=== PATIENT | female | born 1990 | race Caucasian/White ===

== ENCOUNTER 2024-01-14 21:09 | Observation (INO) | payer BC, SELFPAY ==
[2024-01-14] VITALS (19 sets, daily range): BP systolic 112–149; BP diastolic 64–115; BMI 23.5; BMI 25.5
[2024-01-14 10:31] LABS: % Basophils 0.5 % (0-2); % Eosinophils 0.9 % (0-6); % Immature Granulocytes 0.4 % (0-0.5); % Lymphocytes 13.4 % (20.5-51.1); % Monocytes 3.7 % (1.7-9.3); % Neutrophils 81.1 % (42.2-75.2); Absolute Basophils 0.1 10^3/uL (0-0.2); Absolute Eosinophils 0.1 10^3/uL (0-0.7); Absolute Immature Granulocytes 0.1 10^3/uL (0-0.05); Absolute Lymphocytes 1.5 10^3/uL (1.2-3.4); Absolute Monocytes 0.4 10^3/uL (0.1-0.6); Absolute Neutrophils 9.3 10^3/uL (1.4-6.5); Hematocrit 37.1 % (37.0-47.0); Hemoglobin 12.7 g/dL (12.0-16.0); Mean Corp Hgb Conc. 34.2 g/dL (33.0-37.0); Mean Corpuscular Hgb 28.6 pg (27.0-31.0); Mean Corpuscular Volume 83.6 fL (81.0-99.0); Mean Platelet Volume 11.7 fL (7.4-10.4); Nucleated Red Blood Cells % 0 %; Platelet Count 295 10^3/uL (130-400); Red Blood Cell Count 4.44 10^6/uL (4.20-5.40); Red Cell Dist. Width 11.9 % (11.5-14.5); White Blood Cell Count 11.5 10^3/uL (4.8-10.8)
[2024-01-14 10:54] LABS: Blood Urea Nitrogen 12 mg/dl (7-17); Calcium 9.3 mg/dl (8.4-10.2); Carbon Dioxide 22 mmol/L (22-30); Chloride 107 mmol/L (98-107); Estimated Creatinine Clearance > 125 ml/min; Glucose 104 mg/dl (70-99); Sodium 138 mmol/L (135-145); eGFR > 60.00
--- NOTE | 2024-01-14 11:07 | EDRN ---
the pt pressed the call douglas and this RN entered the pts room, the pt stated that she needed to urinate, this RN asked the pt if she felt like she could walk to the bathroom, the pt stated that when she moves she has severe pain, this RN asked the
pt if she wanted to use a pure wick, the pt was agreeable to the pure wick, this RN placed the pure wick, will continue to monitor the pt closely
--- NOTE | 2024-01-14 11:21 | EDRN ---
the pt pressed the call douglas and this RN entered the pts room, the pt was able to urinate, urine collected and sent to lab, jesus manuel rivera removed per the pts request, will continue to monitor the pt closely
--- NOTE | 2024-01-14 11:23 | ED.GENMED ---
History of Present Illness
<Genny Rico MD - Last Filed: 01/14/24 14:05>
General
Chief Complaint: Fainting/Passed Out
Source: patient
Exam Limitations: none
Time Seen by Provider: 01/14/24 10:35
Nursing documentation reviewed up to this point in time: agreed with
History of Present Illness
History of Present Illness:
Patient is a pleasant 33-year-old female who reports that she bent down to tie her shoe just prior to arrival and experienced sudden onset of severe right lower back pain radiating into her right buttock area and up the right side of her mid back.
Patient reports that the pain was so intense she felt lightheaded and passed out. Patient denies headache and vision changes. She denies nausea and vomiting. Patient reports she still has pain in her right lower back, primarily in her right
buttock area. She describes the pain is severe at this time. She reports she was given fentanyl by paramedics which only brought her pain down slightly. She denies radiation of pain into the legs. She denies weakness and numbness of the legs.
She denies chest pain or shortness of breath.
Past History
<Genny Rico MD - Last Filed: 01/14/24 14:05>
Past History
ED Past Medical History: None
ED Past Surgical History: None
Social History
Tobacco: Non-smoker
Alcohol: Other
Drug: None
Personal: Other
Living: with family
Employment: Other
Family History
Family History: Other
Review of Systems
<Genny Rico MD - Last Filed: 01/14/24 14:05>
Review of Systems
Allergies reviewed?: Yes
Constitutional: Reports no symptoms
EENT: Reports no symptoms
Respiratory: Reports no symptoms
Cardiac: Reports syncope
ABD/GI: Reports no symptoms
: Reports no symptoms
Musculoskeletal: Reports muscle stiffness and back pain
Skin: Reports no symptoms
Neurological: Reports no symptoms
Endocrine: Reports no symptoms
Hematologic/Lymphatic: Reports no symptoms
Psychiatric: Reports no symptoms
Phy Exam
<Genny Rico MD - Last Filed: 01/14/24 14:05>
Physical Exam
Physical Exam:
Physical Exam
General: Nontoxic but patient looks uncomfortable
Neck: supple. no meningeal signs. normal posterior pharynx
Heart: s1/s2 regular rate and rhythm, no murmur. equal radial pulses.
Lungs: no acute respiratory distress. clear bilaterally
Abdomen: normal bowel sounds. Mild right lower flank/right sacral tenderness. Soft abdomen throughout. No pulsatile mass.
Neuro: alert and oriented. no focal neurological deficits. 5 out of 5 strength in all extremities. No saddle anesthesia.
Skin: no rash
Psychiatric: well kept. interactive and cooperative
Extremities: no edema. no calf tenderness. negative homans. good distal pulses
Course
<Genny Rico MD - Last Filed: 01/14/24 14:05>
Orders/Labs/Results
Orders:
Orders
01/14/24 10:03
EKG [Electrocardiogram (*1)] Urgent
Reason for Study: Vertigo / Dizzy
01/14/24 10:04
EKG- Treatment ONCE
01/14/24 10:09
Basic Metabolic Panel Urgent
Complete Blood Count/With Diff Urgent
Direct Bilirubin Urgent
Comment: ADD ON
HCG, Urine Qualitative Screen Urgent
Date Specimen was Collected: 01/14/24
Time Specimen was Collected: 10:04
Comment: [place] [id number]
Urinalysis Reflex To Culture Urgent
Date Specimen was Collected: 01/14/24
Time Specimen was Collected: 10:04
01/14/24 11:32
HYDROmorphone [Dilaudid] 0.5 mg IV NOW STA
diazePAM [Valium Injection] 5 mg IV NOW STA
01/14/24 11:36
Troponin I Urgent
01/14/24 12:41
Add On- LAB Urgent
Tests Added?: serum beta HCG qualitative
01/14/24 12:42
CT Chest/abd/pelvis Angio W/wo Urgent
Comment:
Reason For Exam: severe flank pain
01/14/24 14:16
Add On- LAB Urgent
Tests Added?: LFT
01/14/24 17:02
HYDROmorphone [Dilaudid] 1 mg IV NOW STA
Lidocaine [Lidocaine 4% Patch] 1 patch TOPICAL NOW STA
Apply Lidocaine patch(s) to:: back
diazePAM [Valium Injection] 5 mg IV NOW STA
Abnormal Lab Results
01/14/24
10:09
WBC 11.5 H 10^3/uL
(4.8-10.8)
MPV 11.7 H fL
(7.4-10.4)
Abs Immat Gran (auto) 0.1 H 10^3/uL
(0-0.05)
Absolute Neuts (auto) 9.3 H 10^3/uL
(1.4-6.5)
Neutrophils % 81.1 H %
(42.2-75.2)
Lymphocytes % 13.4 L %
(20.5-51.1)
Glucose 104 H mg/dl
(70-99)
01/14/24 10:09
01/14/24 10:09
Vital Signs
Initial and Last Documented VS:
Initial Vital Signs
Temp Pulse Resp BP Pulse Ox
98.5 F 56 16 139/115 97
01/14/24 10:24 01/14/24 10:24 01/14/24 10:24 01/14/24 10:24 01/14/24 10:24
Last Documented Vital Signs
Temp Pulse Resp BP Pulse Ox
98.5 F 74 13 136/77 97
01/14/24 10:24 01/14/24 18:00 01/14/24 18:00 01/14/24 18:00 01/14/24 18:00
<Meenu Brandon MD - Last Filed: 01/14/24 20:49>
Orders/Labs/Results
Orders:
Orders
01/14/24 10:03
EKG [Electrocardiogram (*1)] Urgent
Reason for Study: Vertigo / Dizzy
01/14/24 10:04
EKG- Treatment ONCE
01/14/24 10:09
Basic Metabolic Panel Urgent
Complete Blood Count/With Diff Urgent
Direct Bilirubin Urgent
Comment: ADD ON
HCG, Urine Qualitative Screen Urgent
Date Specimen was Collected: 01/14/24
Time Specimen was Collected: 10:04
Comment: [place] [id number]
Urinalysis Reflex To Culture Urgent
Date Specimen was Collected: 01/14/24
Time Specimen was Collected: 10:04
01/14/24 11:32
HYDROmorphone [Dilaudid] 0.5 mg IV NOW STA
diazePAM [Valium Injection] 5 mg IV NOW STA
01/14/24 11:36
Troponin I Urgent
01/14/24 12:41
Add On- LAB Urgent
Tests Added?: serum beta HCG qualitative
01/14/24 12:42
CT Chest/abd/pelvis Angio W/wo Urgent
Comment:
Reason For Exam: severe flank pain
01/14/24 14:16
Add On- LAB Urgent
Tests Added?: LFT
01/14/24 17:02
HYDROmorphone [Dilaudid] 1 mg IV NOW STA
Lidocaine [Lidocaine 4% Patch] 1 patch TOPICAL NOW STA
Apply Lidocaine patch(s) to:: back
diazePAM [Valium Injection] 5 mg IV NOW STA
Abnormal Lab Results
01/14/24
10:09
WBC 11.5 H 10^3/uL
(4.8-10.8)
MPV 11.7 H fL
(7.4-10.4)
Abs Immat Gran (auto) 0.1 H 10^3/uL
(0-0.05)
Absolute Neuts (auto) 9.3 H 10^3/uL
(1.4-6.5)
Neutrophils % 81.1 H %
(42.2-75.2)
Lymphocytes % 13.4 L %
(20.5-51.1)
Glucose 104 H mg/dl
(70-99)
01/14/24 10:09
01/14/24 10:09
Vital Signs
Initial and Last Documented VS:
Initial Vital Signs
Temp Pulse Resp BP Pulse Ox
98.5 F 56 16 139/115 97
01/14/24 10:24 01/14/24 10:24 01/14/24 10:24 01/14/24 10:24 01/14/24 10:24
Last Documented Vital Signs
Temp Pulse Resp BP Pulse Ox
98.5 F 74 13 136/77 97
01/14/24 10:24 01/14/24 18:00 01/14/24 18:00 01/14/24 18:00 01/14/24 18:00
<Genny Rico MD - Last Filed: 01/14/24 14:05>
MDM/Problems Addressed
Differential Diagnosis Includes:
Musculoskeletal back pain, aortic dissection, renal colic
MDM/Problems Addressed:
Patient presents with acute right lower back pain
<Genny Rico MD - Last Filed: 01/14/24 14:05>
*Pulse Oximetry
Patient hypoxic: no
*EKG
Interpreted by ED Provider?: Yes
Interpretation: abnormal
Comparison EKG: no comparison EKG present
Rate: normal
Rhythm: sinus arrhythmia
[place]: normal axis
Interval: normal interval
QRS Pattern: normal QRS
Ischemia: non-specific ST changes
*Neonatal Critical Care Nurse Interpretation
Rate: normal
Interpretation: normal
Rhythm: sinus
<Meenu Brandon MD - Last Filed: 01/14/24 20:49>
*Critical Care Note
Total Time (30-74mins, 75-104mins- exclusive of procedures): Not Applicable
<Meenu Brandon MD - Last Filed: 01/14/24 20:49>
Update Note
Update Note:
CT report No evidence of thoracic/abdominal aortic dissection or aneurysm.
Mild hepatomegaly.
No findings to suggest obstructive uropathy bilaterally.
Single small sclerotic densities within the head of the proximal left femur and supra-acetabular, nonspecific but most likely representing incidental benign bone islands.
S/o Dr Rico...reassuringly, CT generally unremkarakble. No new sxs, pain continues, espec with mvoement. Will medicate and monitor closely.
Despite meds here, pt continues to have pain, particularly with sitting up/attempting to stand walk. No neuro sxs such as weakness,n,t. ?severe msk vs radiculopathy Doubt vascular event given studies here, no neuro sxs, etc. D/w hospitalist for
admission and pain control.
849 PM pt and family questions answered, pt declines further meds at this time, no new sxs. Has been seen by hospitalist.
ED Attending Note
<Genny Rico MD - Last Filed: 01/14/24 14:05>
-
Portions of this chart may have been created with voice recognition software.� Occasional wrong word or��sound alike� substitutions may have occurred due to the inherent limitations of voice recognition software.
Discharge Plan
Departure
Patient Disposition: Admit
Date of Disposition: 01/14/24
Time of Disposition: 19:46
Presentation/result/management discussed w/ accepting MD/DO: Hospitalist
Condition: Fair
Discharge Problem:
Back pain
Prescriptions:
No Action
ascorbic acid (vitamin C) [Vitamin C] 500 mg Tablet
500 mg PO DAILY
norgestimate-ethinyl estradiol 0.18/0.215/0.25 mg-35 mcg (28) tablet
1 tab PO DAILY
Visbiome 112.5 billion cell Capsule
1 cap PO DAILY
Referrals:
Yolanda León PA-C [Family Provider] -
Interventions
Interventions:
*Risk Screen - Suicide Last Done: 01/14/24 10:24
*General Assessment Last Done: 01/14/24 10:24
*Neglect/Abuse Screening Last Done: 01/14/24 10:24
ED- Fall Risk Assessment Last Done: 01/14/24 10:24
*ED COVID-19 Vaccine History Last Done: 01/14/24 10:24
ED- Cardiac Assessment Last Done: 01/14/24 10:24
ED- Neurological Assessment Last Done: 01/14/24 10:24
Discharge Date and Time
Print Language: LAO
[2024-01-14 11:25] LABS: Urine Albumin Negative (Neg - Trace); Urine Bilirubin Negative (Negative); Urine Character Clear (Clear); Urine Color Yellow; Urine Glucose Negative (Negative); Urine Ketone Negative (Negative); Urine Leukocyte Negative (Negative); Urine Nitrite Negative (Negative); Urine Occult Blood Negative (Negative); Urine Specific Gravity 1.015 (<1.030); Urine Urobilinogen Negative (Neg - 1+)
--- NOTE | 2024-01-14 11:41 | EDRN ---
Troponin drawn and sent, Right Hand PIV removed per the pts request, RAC #20 PIV placed
[2024-01-14] MEDS: VALIUM INJECTION 5 MG IV ×2 (11:46→17:48)
[2024-01-14] MEDS: DILAUDID 0.5 MG IV (11:47)
[2024-01-14 12:13] LABS: Troponin I < 0.012 ng/ml
--- NOTE | 2024-01-14 12:29 | EDRN ---
pain medication administered and EKG performed, per the provider Deyanira Mathew NP the pt is to be placed on campus monitor for elevated K, this RN notified the charge nurse, this RN will find portable monitor
--- NOTE | 2024-01-14 13:30 | EDRN ---
awaiting for the pt to go to CT scan
--- NOTE | 2024-01-14 14:16 | EDRN ---
Dr. Lacey currently at the pts bedside, the pt is resting in stretcher in the lowest position, side rails up x2, call douglas within reach, HOB elevated, no s/s of distress, the pt denies needing anything at this time, will continue to monitor the
pt closely
--- NOTE | 2024-01-14 14:28 | EDRN ---
the pt pressed the call douglas and this RN entered the pts room, the pt stated that she needed to urinate, this RN asked the pt if she wanted to try to get out of bed and the pt was agreeable, this RN attempted to assist the pt OOB and due to severe
pain in the right lower back that radiates to the lower leg, the pt was unable to get out of bed, this RN placed a pure wick with the pts permission, awaiting to take the pt to CT scan, will continue to monitor the pt closely
--- NOTE | 2024-01-14 14:29 | EDRN ---
provider notified by this RN that the pt bradys down to the 40's
--- NOTE | 2024-01-14 14:30 | EDRN ---
still currently waiting for the pt to go to CT scan
[2024-01-14 14:51] LABS: HCG, Urine Qualitative Screen Negative
[2024-01-14 16:26] LABS: Direct Bilirubin 0.4 mg/dl (0.0-0.4)
[2024-01-14] MEDS: LIDOCAINE 4% PATCH 1 PATCH TOPICAL (17:46)
[2024-01-14] MEDS: DILAUDID 1 MG IV (17:47)
--- NOTE | 2024-01-14 20:25 | HPS.HSE ---
Addendum entered and electronically signed by Destin Lipscomb MD 01/16/24 11:01:
I saw and evaluated the patient. I reviewed the resident�s note and agree with findings and plan as documented in the resident�s note.
Back pain improving.
Patient seen and examined with nurse Noy Gleason present at bedside:
Gen: NAD, AAOx3.
Eyes: EOMI, PERRLA, no scleral icterus.
Neck: supple.
CV: remains RRR, +S1/S2, no m/r/g.
Resp: remains CTAB, no rales, wheezes, or rhonchi.
Abd: +BS, soft, NT, ND
Skin: No rashes.
Neuro: CN 2-12 intact, non-focal (5/5 strength RLE, 4/5 strength LLE due to pain).
Psych: Normal mood and affect.
MRI L-spine: There is degenerative disc disease and facet arthropathy at L4-L5 and L5-S1. At L4-L5 is disc bulge with superimposed central disc protrusion and mild bilateral facet arthropathy with resultant bilateral lateral recess narrowing and
mild bilateral neural foraminal narrowing. No significant central canal stenosis. At L5-S1 there is central disc protrusion and bilateral facet arthropathy without significant spinal canal or neuroforaminal narrowing.
Low back pain:
-Toradol is helping with pain
-flexeril PRN
-cont Medrol dose radha
-for PAM 01/17/24PM. Note c/s to Dr. Tong placed 01/15/24 but he stated that since he does not do PAM that procedure would have to be delayed until 01/17/24.
-PT/OT
Pt's mother updated at length at bedside. RN updated.
Original Note:
Family Physician
-
Family Physician: Yolanda León, PAC
Chief Complaint
-
Back pain
History of Present Illness
Patient is a 32-year-old female who presented to ED for evaluation following quick onset of back pain with near syncopal episode. Patient reported that she was sitting on treadmill and bent over to tie her shoes early this morning when she had
sudden onset of sharp stabbing pain to lower back that radiated upwards to midback just below her shoulder blades. She stated she had near syncopal episode from severe onset of pain. Patient denies any dyspnea, chest pain, nausea, vomiting, numbness
or tingling in extremities. She has postivie ROM to bilateral upper extremities and limited ROM to bilateral lower extremities related to back pain. Patient received Dilaudid, and Valium in ED and she states it has taken edge off but pain remains at
a 10/09. ED staff attempted to see if patient could stand and she was unable to weight bear to bilateral lower extremities.
Medical History
Past Medical History
Past Medical History: Reports None
Past Surgical History: Reports Other (deviated septum repair)
Social History
Tobacco: Non-smoker
Alcohol: Occasional (1-2 drinks per week)
Drug: Marijuana (former marijuana smoker)
Personal: Single
Living: With Family
Employment: Employed
Family History
Family History: Not pertinent
Allergies / Home Medications
Allergies reflects when Allergies were last updated in [employer].
Home Medications with original date entered in [employer]
Allergy/Medication List:
Allergies
Allergy/AdvReac Type Severity Reaction Status Date / Time
No Known Allergies Allergy Verified 07/30/17 16:51
Home Medications Table - record
�Medication �Instructions �Recorded �Confirmed
Lactobac no.2-Bifidobac no.1-S. 1 cap PO DAILY 01/14/24 01/14/24
thermo 112.5 billion cell capsule
(Visbiome)
ascorbic acid (vitamin C) 500 mg 500 mg PO DAILY 01/14/24 01/14/24
tablet (Vitamin C)
norgestimate-ethinyl estradiol 1 tab PO DAILY 01/14/24 01/14/24
0.18 mg/0.215mg/0.25mg-35
mcg(28)tablet
Review of Systems
-
History Source: Patient
Constitutional: Reports No Symptoms and See HPI
EENT: Reports No Symptoms and See HPI
Respiratory: Reports No Symptoms and See HPI
Cardiac: Reports No Symptoms and See HPI
Abdomen/GI: Reports No Symptoms and See HPI
: Reports No Symptoms and See HPI
Musculoskeletal: Reports See HPI and Other (severe lower back pain radiates to midback)
Skin: Reports No Symptoms and See HPI
Neurological: Reports See HPI and Weakness
Endocrine: Reports No Symptoms and See HPI
Hematologic/Lymphatic: Reports No Symptoms and See HPI
Psych: Reports No Symptoms and See HPI
Physical Exam
Vital Signs
Vital Signs
Temp Pulse Resp BP Pulse Ox
98.5 F 74 13 136/77 97
01/14/24 10:24 01/14/24 18:00 01/14/24 18:00 01/14/24 18:00 01/14/24 18:00
Physical Exam
General: Well Developed, Well Nourished, No Apparent Distress, Conversant and Pain (lower back that radiates to midback)
HEENT: NormoCephalic, Moist mucous membranes, PERRLA, [place] Conjunctivae, Nose Appears Normal and Ears Appear Normal
Respiratory: Clear and Non Labored Respirations; No Accessory Resp Muscle Use
Cardiac: S1/S2 and Regular Rhythm; No Peripheral Edema
Breast: Deferred by me
GI: Soft, Non Tender, Non Distended and Normal Bowel Sounds
Rectal: Deferred by Provider
Genito-urinary: Deferred by me
Musculoskeletal: No Clubbing, No Cyanosis, No Edema, Normal Gait & Station and Other (unable to weight bare to bilateral lower extremities, ROM decreased in Bilateral lower extremities r/t severe back pain)
Skin: Warm, Dry and IV/Catheter Site
Neuro: Awake, AO x 3, Nonfocal/grossly intact and Cranial Nerves Intact
Hematologic/Lymphatic: No Lymphadenopathy
Psych: Calm and Intact Judgment/Insight
Laboratory Results
-
01/14/24 10:09
01/14/24 10:09
Laboratory Results
Total Bilirubin Cancelled 01/14/24 14:12
AST Cancelled 01/14/24 14:12
ALT Cancelled 01/14/24 14:12
Alkaline Phosphatase Cancelled 01/14/24 14:12
Troponin I < 0.012 ng/ml 01/14/24 11:36
Data Reviewed
-
CT Scan: Report Reviewed by me (No evidence of thoracic/abd aortic dissection or aneurysm. Mild hepatomegaly. No findings to suggest obstructive uropathy b/l, Single small sclerotic densities within the head of the proximal lt femur and
supra-acetabular, nonspecific but most likely representing incidental benign bone island)
Lab Data: Labs Reviewed by me
Impression/Plan
-
IMPRESSION/PLAN:
#Suspect disc prolapse complicated by acute Rt sided LBP with radiation
no red flag signs: pt denies numbness, tingling, sphincter dysfunction, no saddle anaethesis, no motor weakness
- Admit Observation to M/S
- Medrol dose pack
- Flexeril 5mg q8 PRN x 24hr
- PRN Dialudid 0.25mg q4 PRN
- Bowel protocol
- PT/OT
Full Code
DVT Px: LMWH
--- NOTE | 2024-01-14 20:32 | W.PN.UPDATE ---
Update Note
Progress Note Update
This note serves as an addendum to the H&P by body presser PAMELA
HPI:
33F No significant PMH seen at ER for
- Sudden onset of severe right lower back pain radiating into her right buttock area and up the right side of her mid back while she she bent down to tie her shoe
- pain in her right lower back, primarily in her right buttock area
- given fentanyl by paramedics which only brought her pain down slightly.
ROS:
denies radiation of pain into the legs.
She denies weakness and numbness of the legs.
She denies chest pain or shortness of breath.
Vital Signs
Temp Pulse Resp BP Pulse Ox
98.5 F 74 13 136/77 97
01/14/24 10:24 01/14/24 18:00 01/14/24 18:00 01/14/24 18:00 01/14/24 18:00
PE
General: looks uncomfortable
Neck: supple
CVS: s1/s2 regular rate and rhythm, no murmur. equal radial pulses.
Abdomen: normal bowel sounds. . Soft abdomen throughout. No pulsatile mass.
Neuro: alert and oriented. no focal neurological deficits.
5 out of 5 strength in all extremities.
No saddle anesthesia.
MS: Mild right lower flank/right sacral tenderness
Skin: no rash
Psychiatric: well kept. interactive and cooperative
Extremities: no edema. no calf tenderness. negative Homans. good distal pulses
Data
Laboratory Tests
01/14/24 01/14/24
10:09 11:36
WBC 11.5 H
Sodium 138
Carbon Dioxide 22
Creatinine 0.6
Troponin I < 0.012
EKG
SINUS RHYTHM WITH MARKED SINUS ARRHYTHMIA
CANNOT RULE OUT ANTERIOR INFARCT , AGE UNDETERMINED
ABNORMAL ECG
NO PREVIOUS ECGS AVAILABLE
ASSESSMENT & PLAN
suspect Disc prolapse complicated by acute Rt sided LBP with radiation to buttock
Rt sided lumbago
No red flag signs:denied sphincter dysfunction, no saddle anaethesis , no motor weaknes
- Medrol dose pack
- Flexeril 5mg q8h x 24hr
- PRN Dilaudid 0.25 mg q4 PRN
- BW Regime: PRN Senna, Colalce and Miralax
- PT/OT
DVT Px: LMWH
Code: Full
Ons MS
[2024-01-14] MEDS: MEDROL 24 MG PO (23:35)
[2024-01-14] MEDS: DILAUDID 0.25 MG IV (23:36)
--- NOTE | 2024-01-15 00:31 | PTCARENOTE ---
Patient arrived to unit via stretcher around 23:16 with dx of Suspected Disc Prolapse complicated by acute rt sided LBP with Radiation. Patient unable to bear weight on legs currently due to pain. PRN pain medication provided. AAOX3. Pleasant and
cooperative with care. oriented to unit. Call douglas in place.
[2024-01-15] MEDS: FLEXERIL 5 MG PO ×2 (02:59→18:05)
--- NOTE | 2024-01-15 07:32 | W.PN.HOSP.TC ---
Addendum entered and electronically signed by Destin Lipscomb MD 01/15/24 13:05:
I saw and evaluated the patient. I reviewed the resident�s note and agree with findings and plan as documented in the resident�s note.
Back pain persists. Denies bowel or bladder incontinence, saddle anesthesia, weakness of the lower extremities not due to pain, lower extremity paresthesias.
Patient seen and examined with nurse Noy Gleason present at bedside.
Gen: NAD, AAOx3.
Eyes: EOMI, PERRLA, no scleral icterus.
Neck: supple.
CV: RRR, +S1/S2, no m/r/g.
Resp: CTAB, no rales, wheezes, or rhonchi.
Abd: +BS, soft, NT, ND
Skin: No rashes.
Neuro: CN 2-12 intact, non-focal (4/5 strength in B/L LEs due to pain).
Psych: Normal mood and affect.
Low back pain:
-IV dilaudid not helping, will try Toradol
-flexeril PRN
-cont Medrol dose radha
-check MRI L-spine
-PT/OT
Pt's parents updated at length at bedside. RN updated.
Total time spent on today's encounter was 50 minutes which included time spent in counseling the patient/family regarding diagnosis and treatment plan as listed above, goals of care, and symptom management. Case was discussed with nursing staff,
specialists, and care coordinators/case management. All labs and imaging personally reviewed by me. Remainder the time spent in detailed review of previous records, lab data, imaging, and other medical provider documentation.
Original Note:
Today's Communication/Plan
-
-Lumbar MRI pending
-PT follow up
Assessment / Plan
Assessment / Plan
The patient is a 33-year-old female who reported having sudden onset of severe right lower back pain radiating into her right buttock area and up the right side of her mid back after she bent down to tie her shoe on 01.13. She reported she did not
fall or did not have a syncope but she had a severe pain at that time. She denied headache, nausea, feeling diazines, heart palpitations, chest pain, SOB at that time. She denies her pain radiating to her legs and reports it radiates to upper back
area. She denies weakness and numbness of the legs. She was admitted and was ordered a lumbar MRI for a possible disk herniation/musculoskeletal injury.
Assessment/ Plan:
#Possible disc prolapse
-Presenting acute Rt sided LBP with radiation
-No red flag signs: pt denies numbness, tingling, sphincter dysfunction, no saddle anaesthesia, no motor weakness, no urinary/fecal incontinence
-Lumbar MRI was ordered
- Admit Observation to M/S
-Continue Flexeril 5mg q8 PRN x 24hr
-PRN Dialudid 0.25mg q4 PRN
-Lidocaine patch can be considered for pain
- PT/OT
No other chronic medical problems
DVT Px: LMWH
Code status: Full Code
Anticipated Discharge: 24 - 48 hours
Subjective/Interval History
-
Date of Service: January 15, 2024
The patient was seen in her bed reporting she has difficulty to sit or stand up. She had purewick reporting having difficulty to go to bathroom. She reported her pain going to her upper back mostly. Denies urinary/fecal incontinence. Denies
worsening on her pain and weakness on her legs.
Objective Data
-
Labs:
Laboratory Results
01/15/24
06:31
WBC Pending
Hgb Pending
Hct Pending
Plt Count Pending
Vital Signs:
Vital Signs
Temp Pulse Resp BP Pulse Ox
98.0 F 51 18 131/84 99
01/14/24 23:21 01/14/24 23:21 01/14/24 23:21 01/14/24 23:21 01/14/24 23:21
I&O
01/14/24 01/15/24 01/16/24
06:59 06:59 06:59
Intake Total 240 / 240
Output Total 1000 / 1000
Balance -760 / -760
Review of Systems
-
History Source: Patient
EENT: Reports No Symptoms Reported
Respiratory: Reports No Symptoms
Cardiac: Reports No Symptoms
Abdomen/GI: Reports No Symptoms
Genitourinary: Reports No Symptoms and Other (Denies urinary/fecal incontinence.)
Musculoskeletal: Reports Other (See HPI )
Skin: Reports No Symptoms
Neuro: Reports No Symptoms and Other (See HPI )
Physical Exam
-
General: Well Developed and Well Nourished
HEENT: Normocephalic and Atraumatic
Respiratory: Clear to Auscultation
Cardiac: Regular Rhythm and S1/S2
GI: Soft and Nontender
Musculoskeletal: No Clubbing, No Cyanosis, No Edema and Other (Bilateral lower extremity muscle strength exam was limited due pain. It was roughly 4 bilteral)
Skin: Warm
Neuro: Awake, Alert, Oriented, AO x 3 and Other (See HPI )
[2024-01-15 07:45] VITALS: BP 131/67
[2024-01-15] MEDS: DILAUDID 0.25 MG IV (08:10)
[2024-01-15] MEDS: MEDROL 20 MG PO (08:10)
[2024-01-15 08:34] LABS: % Basophils 0.2 % (0-2); % Eosinophils 0.1 % (0-6); % Immature Granulocytes 0.4 % (0-0.5); % Monocytes 0.6 % (1.7-9.3); % Neutrophils 94.7 % (42.2-75.2); Absolute Immature Granulocytes 0.1 10^3/uL (0-0.05); Absolute Lymphocytes 0.5 10^3/uL (1.2-3.4); Absolute Monocytes 0.1 10^3/uL (0.1-0.6); Absolute Neutrophils 11.8 10^3/uL (1.4-6.5); Hematocrit 40.5 % (37.0-47.0); Hemoglobin 13.4 g/dL (12.0-16.0); Mean Corp Hgb Conc. 33.1 g/dL (33.0-37.0); Mean Corpuscular Hgb 28.2 pg (27.0-31.0); Mean Corpuscular Volume 85.3 fL (81.0-99.0); Mean Platelet Volume 12.4 fL (7.4-10.4); Nucleated Red Blood Cells % 0 %; Platelet Count 321 10^3/uL (130-400); Red Blood Cell Count 4.75 10^6/uL (4.20-5.40); Red Cell Dist. Width 11.9 % (11.5-14.5); White Blood Cell Count 12.5 10^3/uL (4.8-10.8)
[2024-01-15] MEDS: TORADOL 30 MG IV ×2 (14:07→20:31)
--- NOTE | 2024-01-15 14:32 | CM ---
CM reviewed chart, met with patient and mother and father bedside. Initial assessment completed. Patient resides with her six year old son in a multiple story home, no steps to enter, full flight of stairs to main floor. Patient denies use of any
DME, VN, or SNF history. Patient confirms PCP Yolanda León, pharmacy [facility], confirms prescription coverage. CM reviewed OBS form, refused to sign, placed in chart. CM will continue to follow for all discharge planning needs.
Plan; home, no needs likely.
[2024-01-15 15:58] VITALS: BP 122/69
[2024-01-15] MEDS: LOVENOX 40 MG SC (18:05)
[2024-01-15 23:50] VITALS: BP 121/69
[2024-01-16] MEDS: TORADOL 30 MG IV ×3 (04:36→17:49)
--- NOTE | 2024-01-16 05:54 | DOWNTIME ---
There was a [employer] Lead Downtime on 01/16/2024 from 0100 to 01/16/2024 at 0355. Downtime documentation of patient's care, including medication administrations, has been reconciled in the electronic record per guidelines. Refer to the
patient's paper chart under the miscellaneous tab to see printed paper medication records and downtime forms.
--- NOTE | 2024-01-16 07:29 | W.PN.HOSP.TC ---
Addendum entered and electronically signed by Destin Lipscomb MD 01/16/24 12:51:
I saw and evaluated the patient. I reviewed the resident�s note and agree with findings and plan as documented in the resident�s note.
Back pain improving
Patient seen and examined with nurse Noy Gleason present at bedside.
Gen: NAD, AAOx3.
Eyes: EOMI, PERRLA, no scleral icterus.
Neck: supple.
CV: remains RRR, +S1/S2, no m/r/g.
Resp: remains CTAB, no rales, wheezes, or rhonchi.
Abd: +BS, soft, NT, ND
Skin: No rashes.
Neuro: CN 2-12 intact, non-focal, 5/5 RLE, 4/5 LLE (limited by pain)
Psych: Normal mood and affect.
Low back pain:
-Toradol helping
-flexeril PRN
-cont Medrol dose radha
-for PAM tomorrow
-PT/OT
Pt's mother updated at bedside. RN updated.
Original Note:
Today's Communication/Plan
-
-IR Cons
Assessment / Plan
Assessment / Plan
Impression: The patient is a 33-year-old female who reported having sudden onset of severe right lower back pain radiating into her right buttock area and up the right side of her mid back after she bent down to tie her shoe on 01.13. She reported
she did not fall or did not have a syncope but she had a severe pain at that time. She denied headache, nausea, feeling diazines, heart palpitations, chest pain, SOB at that time. She denies her pain radiating to her legs and reports it radiates to
upper back area. She denies weakness and numbness of the legs. She was admitted and was ordered a lumbar MRI for a possible disk herniation/musculoskeletal injury. She was consulted with IR and scheduled for an epidural steroid injection on 01/16.
Assessment/ Plan:
#Lumbar disc protrusion
-Presenting acute Rt sided LBP with radiation
-No red flag signs: pt denies numbness, tingling, sphincter dysfunction, no saddle anaesthesia, no motor weakness, no urinary/fecal incontinence
-Lumbar MRI: There is degenerative disc disease and facet arthropathy at L4-L5 and L5-S1. At L4-L5 is disc bulge with superimposed central disc protrusion and mild bilateral facet arthropathy with resultant bilateral lateral recess narrowing and
mild bilateral neural foraminal narrowing. No significant central canal stenosis. At L5-S1 there is central disc protrusion and bilateral facet arthropathy without significant spinal canal or neuroforaminal narrowing.
-IR was consulted: the patient was scheduled for an epidural steroid injection on 01/16 aftrenoon
-Continue Flexeril 5mg q8 PRN x 24hr
-PRN Dialudid 0.25mg q4 PRN
-Lidocaine patch can be considered for pain
- PT/OT
No other chronic medical problems
DVT Px: LMWH
Code status: Full Code
Anticipated Discharge: 24 - 48 hours
Subjective/Interval History
-
Date of Service: January 16, 2024
Patient reported she
Objective Data
-
Labs:
Laboratory Results
01/16/24
06:00
WBC Pending
Hgb Pending
Hct Pending
Plt Count Pending
Sodium Pending
Potassium Pending
Chloride Pending
Carbon Dioxide Pending
BUN Pending
Creatinine Pending
Glucose Pending
Calcium Pending
Total Bilirubin Pending
AST Pending
ALT Pending
Alkaline Phosphatase Pending
Vital Signs:
Vital Signs
Temp Pulse Resp BP Pulse Ox
97.8 F 59 14 121/69 95
01/15/24 23:50 01/15/24 23:50 01/15/24 23:50 01/15/24 23:50 01/15/24 23:50
I&O
01/15/24 01/16/24 01/17/24
06:59 06:59 06:59
Intake Total 240 / 240 780 / 780
Output Total 1000 / 1000
Balance -760 / -760 780 / 780
Physical Exam
-
General: Well Developed, Well Nourished and No Apparent Distress
HEENT: Normocephalic and Atraumatic
Respiratory: Clear to Auscultation
Cardiac: Regular Rhythm and S1/S2
GI: Soft and Nontender
Musculoskeletal: No Clubbing, No Cyanosis, No Edema and Other (Lumbar Rom limited and painful. Bilateral lower extremity muscle strength exam was limited due pain and was grossly found 4)
Skin: Warm
Neuro: Awake, Alert, Oriented, AO x 3, Nonfocal/Grossly Intact and Other (No urinary/fecal incontinences )
Psych: Calm
[2024-01-16 07:40] VITALS: BP 132/75
--- NOTE | 2024-01-16 08:35 | W.PN.UPDATE ---
Update Note
Progress Note Update
IR was consulted for an PAM. Our room is down today and the physician on does not perform this procedure. We plan to perform the PAM tomorrow 01/17/24 in the afternoon
[2024-01-16] MEDS: FLEXERIL 5 MG PO ×2 (09:20→21:16)
[2024-01-16] MEDS: MEDROL 16 MG PO (09:20)
[2024-01-16 09:24] LABS: % Basophils 0.4 % (0-2); % Eosinophils 1.3 % (0-6); % Immature Granulocytes 0.5 % (0-0.5); % Lymphocytes 25.2 % (20.5-51.1); % Monocytes 5.7 % (1.7-9.3); % Neutrophils 66.9 % (42.2-75.2); Absolute Basophils 0.1 10^3/uL (0-0.2); Absolute Eosinophils 0.2 10^3/uL (0-0.7); Absolute Immature Granulocytes 0.1 10^3/uL (0-0.05); Absolute Monocytes 0.7 10^3/uL (0.1-0.6); Absolute Neutrophils 7.9 10^3/uL (1.4-6.5); Hematocrit 39.8 % (37.0-47.0); Hemoglobin 13.2 g/dL (12.0-16.0); Mean Corp Hgb Conc. 33.2 g/dL (33.0-37.0); Mean Corpuscular Hgb 28.1 pg (27.0-31.0); Mean Corpuscular Volume 84.9 fL (81.0-99.0); Mean Platelet Volume 12.3 fL (7.4-10.4); Nucleated Red Blood Cells % 0 %; Platelet Count 304 10^3/uL (130-400); Red Blood Cell Count 4.69 10^6/uL (4.20-5.40); Red Cell Dist. Width 12.2 % (11.5-14.5); White Blood Cell Count 11.7 10^3/uL (4.8-10.8)
[2024-01-16 10:20] LABS: ALT (SGPT) 16 U/L (0-35); AST (SGOT) 20 U/L (14-36); Alkaline Phosphatase 51 U/L (38-126); Blood Urea Nitrogen 17 mg/dl (7-17); Calcium 9.2 mg/dl (8.4-10.2); Carbon Dioxide 25 mmol/L (22-30); Chloride 105 mmol/L (98-107); Estimated Creatinine Clearance 88 ml/min; Glucose 90 mg/dl (70-99); Potassium 4.4 mmol/L (3.5-5.1); Sodium 143 mmol/L (135-145); Total Bilirubin 0.8 mg/dl (0.2-1.3); Total Protein 6.7 g/dl (6.3-8.2); eGFR > 60.00
[2024-01-16 11:17] VITALS: BP 120/76; PULSE 60; O2SAT 97
[2024-01-16 11:23] VITALS: BP 120/76; PULSE 60; O2SAT 97
--- NOTE | 2024-01-16 14:57 | CM ---
Home when stable. no needs.
Plan; Home no needs when stable.
[2024-01-16 15:18] VITALS: BP 141/75
[2024-01-16] MEDS: LOVENOX 40 MG SC (17:25)
[2024-01-16 23:30] VITALS: BP 127/71
[2024-01-17 06:53] LABS: % Basophils 0.6 % (0-2); % Eosinophils 1.3 % (0-6); % Immature Granulocytes 0.5 % (0-0.5); % Lymphocytes 27.6 % (20.5-51.1); % Monocytes 5.7 % (1.7-9.3); % Neutrophils 64.3 % (42.2-75.2); Absolute Basophils 0.1 10^3/uL (0-0.2); Absolute Eosinophils 0.2 10^3/uL (0-0.7); Absolute Immature Granulocytes 0.1 10^3/uL (0-0.05); Absolute Lymphocytes 3.5 10^3/uL (1.2-3.4); Absolute Monocytes 0.7 10^3/uL (0.1-0.6); Absolute Neutrophils 8.2 10^3/uL (1.4-6.5); Hematocrit 39.7 % (37.0-47.0); Hemoglobin 13.3 g/dL (12.0-16.0); Mean Corp Hgb Conc. 33.5 g/dL (33.0-37.0); Mean Corpuscular Hgb 29.4 pg (27.0-31.0); Mean Corpuscular Volume 87.8 fL (81.0-99.0); Mean Platelet Volume 11.9 fL (7.4-10.4); Nucleated Red Blood Cells % 0 %; Platelet Count 282 10^3/uL (130-400); Red Blood Cell Count 4.52 10^6/uL (4.20-5.40); Red Cell Dist. Width 11.9 % (11.5-14.5); White Blood Cell Count 12.7 10^3/uL (4.8-10.8)
[2024-01-17 07:16] LABS: ALT (SGPT) 15 U/L (0-35); AST (SGOT) 17 U/L (14-36); Albumin 3.7 g/dl (3.5-5.0); Alkaline Phosphatase 53 U/L (38-126); Blood Urea Nitrogen 16 mg/dl (7-17); Calcium 9.1 mg/dl (8.4-10.2); Carbon Dioxide 25 mmol/L (22-30); Chloride 105 mmol/L (98-107); Estimated Creatinine Clearance 88 ml/min; Glucose 87 mg/dl (70-99); Potassium 4.5 mmol/L (3.5-5.1); Sodium 140 mmol/L (135-145); Total Bilirubin 0.8 mg/dl (0.2-1.3); Total Protein 6.4 g/dl (6.3-8.2); eGFR > 60.00
--- NOTE | 2024-01-17 07:26 | W.PN.HOSP.TC ---
Addendum entered and electronically signed by Destin Lipscomb MD 01/17/24 16:39:
Total time spent on d/c = 31 min. This included today's physical exam, progress note, review of laboratory and diagnostic data, preparation of discharge documents and prescriptions, and discussions about the pt's hospital course and discharge plan
with the patient and other medical dosimetrist involved in the patient's care.
Addendum entered and electronically signed by Destin Lipscomb MD 01/17/24 11:43:
I saw and evaluated the patient. I reviewed the resident�s note and agree with findings and plan as documented in the resident�s note.
No new complaints.
Gen: NAD, AAOx3.
Eyes: EOMI, PERRLA, no scleral icterus.
Neck: supple.
CV: continues to remain RRR, +S1/S2, no m/r/g.
Resp: continues to remain CTAB, no rales, wheezes, or rhonchi.
Abd: +BS, soft, NT, ND
Skin: No rashes.
Neuro: CN 2-12 intact, non-focal, 4/5 RLE and 4/5 LLE (limited by pain)
Psych: Normal mood and affect.
Low back pain:
-Toradol helping
-flexeril PRN
-cont Medrol dose radha
-for PAM today
-PT/OT
Pt's mother updated at bedside.
d/c after PAM
Original Note:
Today's Communication/Plan
-
-IR epidural injection
Assessment / Plan
Assessment / Plan
Impression: The patient is a 33-year-old female who reported having sudden onset of severe right lower back pain radiating into her right buttock area and up the right side of her mid back after she bent down to tie her shoe on 01.13. She reported
she did not fall or did not have a syncope but she had a severe pain at that time. She denied headache, nausea, feeling diazines, heart palpitations, chest pain, SOB at that time. She denies her pain radiating to her legs and reports it radiates to
upper back area. She denies weakness and numbness of the legs. She was admitted and was ordered a lumbar MRI for a possible disk herniation/musculoskeletal injury. She was consulted with IR and scheduled for an epidural steroid injection on 01/16.
Assessment/ Plan:
#Lumbar disc protrusion
-Presenting acute Rt sided LBP with radiation
-No red flag signs: pt denies numbness, tingling, sphincter dysfunction, no saddle anaesthesia, no motor weakness, no urinary/fecal incontinence
-Lumbar MRI: There is degenerative disc disease and facet arthropathy at L4-L5 and L5-S1. At L4-L5 is disc bulge with superimposed central disc protrusion and mild bilateral facet arthropathy with resultant bilateral lateral recess narrowing and
mild bilateral neural foraminal narrowing. No significant central canal stenosis. At L5-S1 there is central disc protrusion and bilateral facet arthropathy without significant spinal canal or neuroforaminal narrowing.
-IR was consulted: the patient was scheduled for an epidural steroid injection on 01/16 aftrenoon
-Continue Flexeril 5mg q8 PRN x 24hr
-PRN Dialudid 0.25mg q4 PRN
-Continue Medrol dose radha
-Lidocaine patch can be considered for pain
- PT/OT
No other chronic medical problems
DVT Px: LMWH
Code status: Full Code
Anticipated Discharge: 24 - 48 hours
Subjective/Interval History
-
Date of Service: January 17, 2024
Patient was seen in her bed reporting her pain and ambulation improved comparing to her admission. Reports no other complaining.
Objective Data
-
Labs:
Laboratory Results
01/17/24
06:08
WBC 12.7 H
Hgb 13.3
Hct 39.7
Plt Count 282
Sodium 140
Potassium 4.5
Chloride 105
Carbon Dioxide 25
BUN 16
Creatinine 0.8
Glucose 87
Calcium 9.1
Total Bilirubin 0.8
AST 17
ALT 15
Alkaline Phosphatase 53
Vital Signs:
Vital Signs
Temp Pulse Resp BP Pulse Ox
98.0 F 50 14 127/71 97
01/16/24 23:30 01/16/24 23:30 01/16/24 23:30 01/16/24 23:30 01/16/24 23:30
I&O
01/16/24 01/17/24 01/18/24
06:59 06:59 06:59
Intake Total 780 / 780 300 / 300
Balance 780 / 780 300 / 300
Review of Systems
-
EENT: Reports No Symptoms Reported
Respiratory: Reports No Symptoms
Cardiac: Reports No Symptoms
Abdomen/GI: Reports No Symptoms
Genitourinary: Reports No Symptoms
Musculoskeletal: Reports Other (See HPI )
Neuro: Reports No Symptoms
Physical Exam
-
General: Well Developed, Well Nourished and No Apparent Distress
HEENT: Normocephalic and Atraumatic
Respiratory: Clear to Auscultation
Cardiac: Regular Rhythm and S1/S2
GI: Soft and Nontender
Musculoskeletal: Other (Lumbar Rom limited and painful. Bilateral lower extremity muscle strength exam was limited due pain and was grossly found 4))
Skin: Warm
Neuro: Awake, Alert, Oriented and AO x 3
[2024-01-17 07:52] VITALS: BP 133/86
[2024-01-17] MEDS: MEDROL 12 MG PO (08:24)
[2024-01-17] MEDS: TORADOL 30 MG IV ×2 (08:28→16:31)
--- NOTE | 2024-01-17 09:55 | CM ---
Chart reviewed and recommendation is for outpatient therapy when stable.
Plan; Home with outpatient physical therapy.
[2024-01-17 13:21] VITALS: BP 145/86; BP_SYST 78
[2024-01-17 14:30] VITALS: BP 132/80
[2024-01-17 15:56] VITALS: BP 137/85
[2024-01-17] MEDS: AFLURIA (36 mos+) 2024-2025 FORMULA 0.5 ML IM (16:54)
== END 2024-01-17 17:40 | disposition home or self-care (01) ==
LOC: 4 WEST ACU 21:09
PROVIDERS: Emergency Medicine; Nurse Practitioner Family; Student in an Organized Health Care Education/Training Program; ADMITTING PHYSICIAN Internal Medicine; ATTENDING PHYSICIAN Internal Medicine; EMERGENCY PHYSICIAN Emergency Medicine; FAMILY PHYSICIAN Physician Assistant
DX: M51.16 Intervertebral disc disorders with radiculopathy, lumbar region (principal); M47.26 Other spondylosis with radiculopathy, lumbar region; M47.817 Spondylosis without myelopathy or radiculopathy, lumbosacral region; M48.061 Spinal stenosis, lumbar region without neurogenic claudication; R55 Syncope and collapse; R42 Dizziness and giddiness; M54.50 Low back pain, unspecified; I49.8 Other specified cardiac arrhythmias; R16.0 Hepatomegaly, not elsewhere classified; R94.31 Abnormal electrocardiogram [ECG] [EKG]; J98.11 Atelectasis; Z23 Encounter for immunization
CPT/HCPCS: 62323; 71275; 72148; 74174; 80048; 80053; 81003; 81025; 82248; 84484; 85025; 90686; 93005; 96374; 96375; 96376; 97116; 97163; 97166; 99285; G0008; G0378; Q9967